=== PATIENT | female | born 1955 ===

== ENCOUNTER 2021-07-09 17:21 | Emergency (ER) | payer MEDICAID ==
[2021-07-09 18:12] LABS: BUPRENORPHINE,URINE NEGATIVE (NEGATIVE); MARIJUANA,URINE NEGATIVE (NEGATIVE); METHYLENEDIOXYMETHAMP,UR NEGATIVE (NEGATIVE); PHENCYCLIDINE,URINE NEGATIVE (NEGATIVE)
[2021-07-09 18:20] LABS: CHLORIDE,CL 107 mmol/L (98-107); SODIUM,NA 145 mmol/L (136-145)
[2021-07-09 18:21] LABS: ANION GAP 15.1 mmol/L (5-15)
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
== END 2021-07-09 22:20 ==
LOC: VM.ED 17:21
DX: R45.4 Irritability and anger (principal)
CPT/HCPCS: 36415; 80053; 80305-QW; 80307; 81001; 85025; 87086; 99283; 99285